=== PATIENT | male | born 1995 | race Caucasian/White ===

== ENCOUNTER → 2016-06-28 | Outpatient (CLI) | payer OTHER ==
[~2016-06-28] MED LIST: LISD50CA4 PO
--- NOTE | 2016-06-28 09:12 | DIAGNOSTIC IMAGING REPORT ---
RIGHT ANKLE 3 VIEWS CLINICAL HISTORY: Right ankle sprain. FINDINGS: 3 views of the right ankle are obtained. No prior studies are available for comparison at the time of dictation. The skeletal structures are well mineralized. No fracture is seen. The ankle mortise is intact. There is a small joint effusion. Mild soft tissue swelling is present around the ankle. IMPRESSION: Mild soft tissue swelling and joint effusion. No fracture is seen. Electronically signed by: Juan M Puentes M.D. 06/28/2016 9:10 AM Dictated Date/Time: 06/28/2016 9:07 AM
== END | disposition home or self-care (01) ==
LOC: C.RADPV 08:54
PROVIDERS: ATTEND Nurse Practitioner
DX: S93.401A Sprain of unspecified ligament of right ankle, initial encounter (principal); X58.XXXA Exposure to other specified factors, initial encounter

== ENCOUNTER → 2017-01-12 | Outpatient (CLI) | payer OTHER | END | disposition home or self-care (01) | LOC: C.LABSPEC 16:51 | PROVIDERS: ATTEND Family Medicine | DX: K12.2 Cellulitis and abscess of mouth (principal) ==